=== PATIENT | male | born 1970 | race Two or more races ===

== ENCOUNTER 2019-03-21 16:35 | Emergency (ER) | payer SELFPAY ==
[~2019-03-21] VITALS: Ht 180.3 cm; Wt 90.7 kg
[2019-03-21] MEDS ORDERED: IOHEXOL 300 MG/ML 100ML BOTTLE IJ ONE (16:58)
[2019-03-21] MEDS ORDERED: ONDANSETRON HCL 4 MG/2 ML VIAL IV ONE (17:00)
[2019-03-21] MEDS ORDERED: MORPHINE SULFATE 4 MG/ML SYR/VIAL IV ONE (17:00)
[2019-03-21 17:51] VITALS: BP 134/90
[2019-03-21] MEDS ORDERED: HYDROcodone-ACET 10/325MG TAB PO ONE (18:30)
== END 2019-03-21 19:05 | disposition home or self-care (01) ==
LOC: ER 16:35
DX: S42.402A Unspecified fracture of lower end of left humerus, initial encounter for closed fracture (principal); E11.9 Type 2 diabetes mellitus without complications; I10 Essential (primary) hypertension; E78.5 Hyperlipidemia, unspecified; W17.89XA Other fall from one level to another, initial encounter; Y93.89 Activity, other specified; Y92.89 Other specified places as the place of occurrence of the external cause; Y99.8 Other external cause status
CPT/HCPCS: 29105; 71260; 73030; 73080; 73552; 73562; 74177; 96374; 96375; 99284; J2270; J2405; Q9967; 29125